=== PATIENT | female | born 1975 | race Caucasian/White ===

== ENCOUNTER 2016-08-30 12:21 | Emergency (ER) | payer OTHER ==
[~2016-08-30] VITALS: Ht 160 cm; Wt 50.0 kg
[~2016-08-30 12:21] MED LIST: METH750T2 PO; ULTR50TA PO
[2016-08-30 12:24] VITALS: BP 114/56; PULSE 77; RESP 15; TEMP 97.9; O2SAT 98
--- NOTE | 2016-08-30 13:51 | PD ---
HPI Chief Complaint: Dough Catcher Problem/Complaint Time Seen by Provider: 13:48 Travel History International Travel<30 days: No Contact w/Intl Traveler<30days: No Traveled to known affect area: No History of Present Illness HPI 41 Year-old female no significant medical history presents to emergency department for evaluation of lower abdominal pain since last night. Describes it as sharp and stabbing. States that movement makes it worse. No urinary symptoms. Patient states that she just simply she is she is currently having light brown vaginal discharge. She states a month ago she did take the "day after pill" and started a menstrual cycle that lasted 2 weeks. She states that she started with this brown spotting yesterday. No fever or chills. No urinary symptoms. No nausea, vomiting, diarrhea. No other symptoms to report. PFSH Past Medical History Anxiety: Yes Cancer: No Cardiovascular Problems: No Diabetes: No Diminished Hearing: No Endocrine: Yes (ADRENAL INSUFFICIENCY) Glaucoma: No Hepatitis: No Hiatal Hernia: No Hypertension: No Musculoskeletal: Yes ("HERNIATED DISC IN NECK" 2003) Respiratory: No Immunizations Current: No Thyroid Disease: No Ulcer: Yes ?: Not : 6 Para: 4 Miscarriage: 2 : 2 Past Surgical History Pacemaker: No Other Surgery: No Social History Alcohol Use: No Tobacco Use: No Substance Use: No Allergies-Medications (Allergen,Severity, Reaction): Coded Allergies: Nonsteroidal Anti-Inflammatory Agts (Verified Allergy, Unknown, 02/04/15) Reported Meds & Prescriptions Reported Meds & Active Scripts Active Robaxin (Methocarbamol) 750 Mg Tab 750 Mg PO TID PRN Ultram (Tramadol HCl) 50 Mg Tab 50 Mg PO TID PRN Review of Systems Except as stated in HPI: all other systems reviewed are Neg Physical Exam Narrative GENERAL: Well-nourished female patient, sitting on the bed, no acute distress SKIN: Warm and dry. HEAD: Atraumatic. Normocephalic. EYES: Pupils equal and round. No scleral icterus. No injection or drainage. ENT: No nasal bleeding or discharge. Mucous membranes pink and moist. NECK: Trachea midline. No JVD. CARDIOVASCULAR: Regular rate and rhythm. No murmur appreciated. RESPIRATORY: No accessory muscle use. Clear to auscultation. Breath sounds equal bilaterally. GASTROINTESTINAL: Abdomen soft, nondistended. Tenderness elicited palpation in the suprapubic and left lower quadrants. No rebound tenderness. No guarding.. Hepatic and splenic margins not palpable. MUSCULOSKELETAL: No obvious deformities. No clubbing. No cyanosis. No edema. NEUROLOGICAL: Awake and alert. No obvious cranial nerve deficits. Motor grossly within normal limits. Normal speech. PSYCHIATRIC: Appropriate mood and affect; insight and judgment normal. Data Data Last Documented VS Vital Signs Date Time Temp Pulse Resp B/P Pulse Ox O2 Delivery O2 Flow Rate FiO2 08/30/16 12:24 97.9 77 15 114/56 98 Orders Basic Metabolic Panel (Bmp) (08/30/16 13:31) Complete Blood Count With Diff (08/30/16 13:31) Prothrombin Time / Inr (Pt) (08/30/16 13:31) Act Partial Throm Time (Ptt) (08/30/16 13:31) Urinalysis - C+S If Indicated (08/30/16 13:31) Ed Urine Pregnancytest Poc (08/30/16 13:31) Gc And Chlamydia Pcr (08/30/16 13:31) Beta Hcg (Quant/Titer) (08/30/16 14:54) Us Pelvis (Ques Preg/Ectopic) (08/30/16 ) MDM Medical Decision Making Medical Screen Exam Complete: Yes Emergency Medical Condition: Yes Medical Record Reviewed: Yes Differential Diagnosis UTI versus STD versus PID versus in utero versus ectopic Narrative Course 41 year-old female presents to emergency department for evaluation. Patient appears without distress. She does have suprapubic and left lower quadrant tenderness to palpation. Workup was initiated in triage. Once a medical bed becomes available, patient will be transferred and care assumed by the provider. Condition: Stable Akilah Ochoa Aug 30, 2016 13:51
[2016-08-30 15:17] LABS: AUTOMATED NEUTROPHIL # 4.2 TH/MM3 (1.8-7.7); BACTERIA, URINE OCC /hpf; BASOPHIL # 0.1 TH/MM3 (0-0.2); BASOPHIL % 0.9 % (0.0-2.0); BLOOD, URINE TRACE (NEG); COMMENT (UR) CULT NOT INDICATED; CULTURE IF INDICATED CULT NOT INDICATED; EOSINOPHIL # 0.1 TH/MM3 (0-0.4); EOSINOPHIL % 0.9 % (0.0-4.0); GLUCOSE,URINE NEG (NEG); HEMATOCRIT 34.1 % (35.0-46.0); HEMO FLAGS DIFF FINAL; KETONE, URINE 10 mg/dL (NEG); LYMPH % 20.7 % (9.0-44.0); LYMPHOCYTE # 1.2 TH/MM3 (1.0-4.8); MEAN CELL VOLUME 94.1 FL (80.0-100.0); MEAN CORPUSCULAR HEMOGLOBIN 32.3 PG (27.0-34.0); MEAN CORPUSCULAR HGB CONC 34.3 % (32.0-36.0); MONO % 8.1 % (0.0-8.0); MUCUS URINE FEW /lpf (OCC); NEUT % 69.4 % (16.0-70.0); NITRITE,URINE NEG (NEG); PLATELET COUNT 308 TH/MM3 (150-450); RED BLOOD COUNT 3.62 MIL/MM3 (4.00-5.30); RED CELL DISTRIBUTION WIDTH 12.4 % (11.6-17.2); SQUAMOUS EPITHELIAL CELL URINE 4 /hpf (0-5); URINE COLOR YELLOW (YELLW/STRAW)
[2016-08-30 15:18] LABS: APTT (PATIENT) 26.6 SEC (24.3-30.1); PROTHROMBIN TIME - PATIENT 10.7 SEC (9.8-11.6)
[2016-08-30 15:22] LABS: BICARBONATE 27.5 MEQ/L (21.0-32.0); POTASSIUM 3.4 MEQ/L (3.5-5.1)
[2016-08-30 15:52] LABS: BETA HCG QUANT 363 MIU/ML (0-5)
[2016-08-30] MEDS ORDERED: MACR100C2 PO (15:59)
--- NOTE | 2016-08-30 15:59 | PD ---
Data Data Last Documented VS Vital Signs Date Time Temp Pulse Resp B/P Pulse Ox O2 Delivery O2 Flow Rate FiO2 08/30/16 15:10 16 08/30/16 12:24 97.9 77 114/56 98 Orders Basic Metabolic Panel (Bmp) (08/30/16 13:31) Complete Blood Count With Diff (08/30/16 13:31) Prothrombin Time / Inr (Pt) (08/30/16 13:31) Act Partial Throm Time (Ptt) (08/30/16 13:31) Urinalysis - C+S If Indicated (08/30/16 13:31) Ed Urine Pregnancytest Poc (08/30/16 13:31) Gc And Chlamydia Pcr (08/30/16 13:31) Beta Hcg (Quant/Titer) (08/30/16 14:54) Us Pelvis (Ques Preg/Ectopic) (08/30/16 ) Wet Prep Profile (08/30/16 16:23) Labs Laboratory Tests Test 08/30/16 08/30/16 14:40 16:00 White Blood Count 6.0 TH/MM3 Red Blood Count 3.62 MIL/MM3 Hemoglobin 11.7 GM/DL Hematocrit 34.1 % Mean Corpuscular Volume 94.1 FL Mean Corpuscular Hemoglobin 32.3 PG Mean Corpuscular Hemoglobin 34.3 % Concent Red Cell Distribution Width 12.4 % Platelet Count 308 TH/MM3 Mean Platelet Volume 8.0 FL Neutrophils (%) (Auto) 69.4 % Lymphocytes (%) (Auto) 20.7 % Monocytes (%) (Auto) 8.1 % Eosinophils (%) (Auto) 0.9 % Basophils (%) (Auto) 0.9 % Neutrophils # (Auto) 4.2 TH/MM3 Lymphocytes # (Auto) 1.2 TH/MM3 Monocytes # (Auto) 0.5 TH/MM3 Eosinophils # (Auto) 0.1 TH/MM3 Basophils # (Auto) 0.1 TH/MM3 CBC Comment DIFF FINAL Differential Comment Prothrombin Time 10.7 SEC Prothromb Time International 1.0 RATIO Ratio Activated Partial 26.6 SEC Thromboplast Time Urine Color YELLOW Urine Turbidity CLEAR Urine pH 6.0 Urine Specific [place] 1.025 Urine Protein TRACE mg/dL Urine Glucose (UA) NEG mg/dL Urine Ketones 10 mg/dL Urine Occult Blood TRACE Urine Nitrite NEG Urine Bilirubin NEG Urine Urobilinogen 2.0 MG/DL Urine Leukocyte Esterase NEG Urine RBC 4 /hpf Urine WBC 1 /hpf Urine Squamous Epithelial 4 /hpf Cells Urine Bacteria OCC /hpf Urine Mucus FEW /lpf Microscopic Urinalysis Comment CULT NOT INDICATED Sodium Level 139 MEQ/L Potassium Level 3.4 MEQ/L Chloride Level 105 MEQ/L Carbon Dioxide Level 27.5 MEQ/L Anion Gap 7 MEQ/L Blood Urea Nitrogen 17 MG/DL Creatinine 0.62 MG/DL Estimat Glomerular Filtration 107 ML/MIN Rate Random Glucose 92 MG/DL Calcium Level 8.7 MG/DL Human Chorionic Gonadotropin, 363 MIU/ML Quant Clue Cells (Wet Prep) NONE SEEN Vaginal Trichomonas (Wet Prep) NONE SEEN Vaginal Yeast (Wet Prep) NONE SEEN MDM Supervised Visit with JANUARY: Yes Narrative Course I, Dr. Armstrong, have reviewed the advance practice practioner's documentation and am in agreement, met with the patient face to face, made the diagnosis, and the medical decision making was done by me. *My assessment and Findings: 41-year-old female AB2 here with complaint of left lower quadrant abdominal pain since last night, sharp. Increasing abnormal vaginal discharge. She did take "the morning after pill" after LMP recently. She is concern for possible . Left lower quadrant abdominal tenderness to palpation, mild without rebound or guarding on exam. Pelvic examination reveals physiologic appearing discharge. No cervical erythema. Diffuse pelvic, left greater than right, tenderness to palpation on bimanual examination but no palpable masses. Differential includes , ectopic , PID, sexually transmitted infection, UTI, less likely ovarian torsion. Urine test was positive. Laboratory workup notable for beta Quant 363. Asymptomatic bacteria. Formal ultrasound remains pending at the time of dictation. Patient signed out to oncoming provider, Dr. Gaming, awaiting results of same. Diagnosis Primary Impression: Asymptomatic bacteriuria Additional Instruction: Finish antibiotics for bacterial within the urine. Med/Other Pt SpecificInfo: Prescription(s) given Scripts Nitrofurantoin Monohydrate Macrocrystals (Macrobid)100 Mg [id number] Mg PO BID 7 Days Ref 0 Prov:Fabienne Armstrong MD 08/30/16 Fabienne Armstrong MD Aug 30, 2016 15:59
[2016-08-30 17:00] VITALS: BP 124/66; PULSE 64; RESP 14; O2SAT 98
[2016-08-30 18:18] LABS: CHLAMYDIA PCR NOT DETECTED (NOT DETECT); NEISSERIA PCR NOT DETECTED (NOT DETECT)
[2016-08-30] MEDS ORDERED: ACETAMINOPHEN 325 MG TAB PO ONE (18:30)
[2016-08-30] MEDS ORDERED: MORPHINE SULFATE 4 MG/ML INJ IV PUSH ONE (18:45)
--- NOTE | 2016-08-30 19:23 | RADRPT ---
EXAM DATE/TIME: 08/30/2016 16:38 [facility] COMPARISON: No previous studies available for comparison. INDICATIONS : Pelvic pain and bleeding with . LAB(S): Beta-hC MEDICAL HISTORY : . x 2. Ulcer. Adrenal insufficiecy. Anxiety. Cervical herniated disc. SURGICAL HISTORY : None. ENCOUNTER: Initial ACUITY: 1 day PAIN SCORE: 6/10 LOCATION: Bilateral pelvis MEASUREMENTS: UTERUS: 7.5 x 4.9 x 4.0 cm ENDOMETRIAL STRIPE: 5 mm RIGHT OVARY: 3.3 x 2.5 x 1.9 cm LEFT OVARY: 3.8 x 3.3 x 2.9 cm FINDINGS: No sonographic evidence of an intrauterine . There is a complex cystic-appearing mass in the right ovary measuring up to 2.5 x 2.3 x 1.5 cm. This is probably a hemorrhagic cyst. There is also a complex cystic mass in the left ovary measuring up to 3.1 cm and a smaller complex cy st measuring up to 1.3 cm. Complex fluid is also present in the cul-de-sac. No discrete gestational s ac or pole is identified. No yolk sac is identified. CONCLUSION: 1. Complex cystic lesions in the ovaries bilaterally as noted above. These are probably complex hemor rhagic or corpus luteum cysts. No sonographic evidence for intrauterine . Close followup rec ommended if beta-hCG level continues to increase. Fabian Juares MD on August 30, 2016 at 19:16 Board Certified Radiologist. This report was verified electronically.
[2016-08-30 19:35] VITALS: BP 145/65; PULSE 91; RESP 16; O2SAT 100
--- NOTE | 2016-08-30 19:46 | PD ---
Physical Exam Date Seen by Provider: Aug 30, 2016 Data Data Last Documented VS Vital Signs Date Time Temp Pulse Resp B/P Pulse Ox O2 Delivery O2 Flow Rate FiO2 08/30/16 19:35 91 16 145/65 100 Room Air 08/30/16 12:24 97.9 Orders Basic Metabolic Panel (Bmp) (08/30/16 13:31) Complete Blood Count With Diff (08/30/16 13:31) Prothrombin Time / Inr (Pt) (08/30/16 13:31) Act Partial Throm Time (Ptt) (08/30/16 13:31) Urinalysis - C+S If Indicated (08/30/16 13:31) Ed Urine Pregnancytest Poc (08/30/16 13:31) Gc And Chlamydia Pcr (08/30/16 13:31) Beta Hcg (Quant/Titer) (08/30/16 14:54) Wet Prep Profile (08/30/16 16:23) Us Pelvis (Ques Pr/Ect)W Trans (08/30/16 ) Acetaminophen (Tylenol) (08/30/16 18:30) Morphine Inj (Morphine Inj) (08/30/16 18:45) Labs Laboratory Tests Test 08/30/16 08/30/16 14:40 16:00 White Blood Count 6.0 TH/MM3 Red Blood Count 3.62 MIL/MM3 Hemoglobin 11.7 GM/DL Hematocrit 34.1 % Mean Corpuscular Volume 94.1 FL Mean Corpuscular Hemoglobin 32.3 PG Mean Corpuscular Hemoglobin 34.3 % Concent Red Cell Distribution Width 12.4 % Platelet Count 308 TH/MM3 Mean Platelet Volume 8.0 FL Neutrophils (%) (Auto) 69.4 % Lymphocytes (%) (Auto) 20.7 % Monocytes (%) (Auto) 8.1 % Eosinophils (%) (Auto) 0.9 % Basophils (%) (Auto) 0.9 % Neutrophils # (Auto) 4.2 TH/MM3 Lymphocytes # (Auto) 1.2 TH/MM3 Monocytes # (Auto) 0.5 TH/MM3 Eosinophils # (Auto) 0.1 TH/MM3 Basophils # (Auto) 0.1 TH/MM3 CBC Comment DIFF FINAL Differential Comment Prothrombin Time 10.7 SEC Prothromb Time International 1.0 RATIO Ratio Activated Partial 26.6 SEC Thromboplast Time Urine Color YELLOW Urine Turbidity CLEAR Urine pH 6.0 Urine Specific [place] 1.025 Urine Protein TRACE mg/dL Urine Glucose (UA) NEG mg/dL Urine Ketones 10 mg/dL Urine Occult Blood TRACE Urine Nitrite NEG Urine Bilirubin NEG Urine Urobilinogen 2.0 MG/DL Urine Leukocyte Esterase NEG Urine RBC 4 /hpf Urine WBC 1 /hpf Urine Squamous Epithelial 4 /hpf Cells Urine Bacteria OCC /hpf Urine Mucus FEW /lpf Microscopic Urinalysis Comment CULT NOT INDICATED Sodium Level 139 MEQ/L Potassium Level 3.4 MEQ/L Chloride Level 105 MEQ/L Carbon Dioxide Level 27.5 MEQ/L Anion Gap 7 MEQ/L Blood Urea Nitrogen 17 MG/DL Creatinine 0.62 MG/DL Estimat Glomerular Filtration 107 ML/MIN Rate Random Glucose 92 MG/DL Calcium Level 8.7 MG/DL Human Chorionic Gonadotropin, 363 MIU/ML Quant Chlamydia trachomatis DNA NOT DETECTED (PCR) Neisseria gonorrhoeae DNA NOT DETECTED (PCR) Clue Cells (Wet Prep) NONE SEEN Vaginal Trichomonas (Wet Prep) NONE SEEN Vaginal Yeast (Wet Prep) NONE SEEN MDM Supervised Visit with JANUARY: Yes Interpretation(s) Vital Signs Date Time Temp Pulse Resp B/P Pulse Ox O2 Delivery O2 Flow Rate FiO2 08/30/16 17:00 64 14 124/66 98 Room Air 08/30/16 15:10 16 08/30/16 12:24 97.9 77 15 114/56 98 CBC & BMP Diagram 08/30/16 14:40 Differential Diagnosis Ectopic , threatened miscarriage, early , ovarian cyst, UTI, cervicitis Narrative Course Patient is a 41-year-old female who is [id number], who presents to the ER with c/o of llq pain. Patient did have a pelvic exam performed by Dr. Benitez, pending. Ultrasound pending. Patient did find out today that she was , hCG Quant is 363. Patient comfortable at this time. Awaiting pelvic ultrasound report. I Reviewed all labs and studies with patient detail. Discussed with patient possibility of ectopic versus bleeding with early versus threatened miscarriage. Patient understands need for repeat hCG Quant in 48 hours. Signs and symptoms of when to return to emergency room reviewed with patient in detail. Patient will follow-up with her [facility] [employer] and return to ER as needed. Diagnosis Primary Impression: Asymptomatic bacteriuria Additional Impressions: Qualified Code: Z33.1 - , unspecified gestational age , ectopic Threatened miscarriage in early Ovarian cyst Qualified Code: N83.201 - Cysts of both ovaries Patient Instructions: General Instructions, Narcotic given in the ED Additional Instruction: Please provide a copy of all labs and studies to patient discharge Finish antibiotics for bacterial within the urine. Please follow-up with all cultures from today Please follow-up with your [employer] as soon as possible Please return to emergency room if symptoms progress or worsen. Bed rest/pelvic rest Please have your hCG Quant repeated in 48 hours as your hCG quant was 363 today Med/Other Pt SpecificInfo: Prescription(s) given Scripts Nitrofurantoin Monohydrate Macrocrystals (Macrobid)100 Mg Sef100 Mg PO BID 7 Days Ref 0 Prov:Fabienne Armstrong MD 08/30/16 Disposition: 01 DISCHARGE HOME Condition: Yary Gaming DO Aug 30, 2016 19:46
== END 2016-08-30 20:22 | disposition home or self-care (01) ==
LOC: NEPA 12:21
DX: O20.0 Threatened abortion (principal); R82.71 Bacteriuria; R10.32 Left lower quadrant pain; N89.8 Other specified noninflammatory disorders of vagina; Z3A.00 Weeks of gestation of pregnancy not specified
CPT/HCPCS: 76700; 76817; 80048; 81001; 84702; 84703; 85025; 85610; 85730; 87210; 87491; 87591; 96374; 99284; J2270

== ENCOUNTER 2016-12-22 15:04 | Emergency (ER) | payer MEDICAID, OTHER ==
[~2016-12-22] VITALS: Ht 157.5 cm; Wt 45.1 kg
[~2016-12-22 15:04] MED LIST changes: +MACR100C2 PO; -METH750T2 PO; -ULTR50TA PO
[2016-12-22 15:08] VITALS: BP 112/62; PULSE 79; RESP 15; TEMP 98.2; O2SAT 99
--- NOTE | 2016-12-22 15:15 | PD ---
HPI Chief Complaint: Injury Time Seen by Provider: 15:15 Travel History International Travel<30 days: No Contact w/Intl Traveler<30days: No Traveled to known affect area: No History of Present Illness HPI 41-year-old female presents the emergency department with injury to the right hand. Patient reports that she didn't wall with her fist last night. Patient is now having pain in the hand at the base of the third fourth and fifth fingers. She denies pain in the wrist or elbow. Patient has numbness in the third fourth and fifth fingers as well as decreased range of motion secondary to pain. Pain is a 7/10. She states she is allergic to nonsteroidal anti-inflammatory agents. PFSH Past Medical History Anxiety: Yes Cancer: No Cardiovascular Problems: No Diabetes: No Diminished Hearing: No Endocrine: Yes (ADRENAL INSUFFICIENCY) Glaucoma: No Hepatitis: No Hiatal Hernia: No Hypertension: No Musculoskeletal: Yes ("HERNIATED DISC IN NECK" 2003) Respiratory: No Immunizations Current: No Thyroid Disease: No Ulcer: Yes ?: Not LMP: 2 WEEKS : 6 Para: 4 Miscarriage: 2 : 2 Past Surgical History Pacemaker: No Other Surgery: No Social History Alcohol Use: Yes (OCCASIONALLY) Tobacco Use: No ("A FEW DAILY") Substance Use: No Allergies-Medications (Allergen,Severity, Reaction): Coded Allergies: Nonsteroidal Anti-Inflammatory Agts (Verified Adverse Reaction, Intermediate, 12/22/16) HISTORY OF GASTRIC ULCER Reported Meds & Prescriptions Reported Meds & Active Scripts Active Acetaminophen Extra Strength (Acetaminophen) 500 Mg Cap 1,000 Mg PO Q6H PRN Review of Systems Except as stated in HPI: all other systems reviewed are Neg General / Constitutional: No: Fever Eyes: No: Visual changes HENT: No: Headaches Cardiovascular: No: Chest Pain or Discomfort Respiratory: No: Shortness of Breath Gastrointestinal: No: Abdominal Pain Genitourinary: No: Dysuria Musculoskeletal: Positive: Arthralgias (see history of present illness.), Limited ROM, Pain Skin: No Rash Neurologic: No: Weakness Psychiatric: No: Depression Endocrine: No: Polydipsia Hematologic/Lymphatic: No: Easy Bruising Physical Exam Narrative GENERAL: Patient appears in mild distress. SKIN: Warm and dry. Normal color. Normal turgor. Patient has obvious bruising over the knuckles of the third fourth and fifth digits. There is mild swelling. There is no wounds or abrasions. HEAD: Atraumatic. Normocephalic. EYES: Pupils equal and round. No scleral icterus. No injection or drainage. ENT: No nasal bleeding or discharge. Mucous membranes pink and moist. Pharynx is clear. NECK: Trachea midline. Supple and nontender. CARDIOVASCULAR: Regular rate and rhythm. RESPIRATORY: No accessory muscle use. Clear to auscultation. Breath sounds equal bilaterally. MUSCULOSKELETAL: Extremities without clubbing, cyanosis, or edema. No obvious deformities. Patient has pain in the right hand along the third fourth and fifth digits. Right Wrist has full range of motion. Normal pronation supination of the right hand. Range of motion is limited secondary to pain. NEUROLOGICAL: Awake and alert. No obvious cranial nerve deficits. Motor grossly within normal limits. Five out of 5 muscle strength in the arms and legs. Normal speech. PSYCHIATRIC: Appropriate mood and affect; insight and judgment normal. Data Data Last Documented VS Vital Signs Date Time Temp Pulse Resp B/P Pulse Ox O2 Delivery O2 Flow Rate FiO2 12/22/16 15:08 98.2 79 15 112/62 99 Orders Hand, Complete ([id number]) (12/22/16 15:19) Ice/Cold Pack (12/22/16 15:19) [facility] Medical Decision Making Medical Screen Exam Complete: Yes Emergency Medical Condition: Yes Differential Diagnosis Right hand contusion. Right hand fracture. Right hand pain. Narrative Course Ice pack is applied. X-ray of the right hand is obtained. X-ray shows no fracture dislocation. Jatinder wrap was placed for comfort. Continues extra strength Tylenol every 6 hours when necessary pain. Patient is to use ice frequently. Patient can follow with her primary care physician if symptoms warrant. Diagnosis Primary Impression: Contusion of right hand including fingers Qualified Code: S60.221A - Contusion of right hand including fingers, initial encounter Referrals: [employer] [employer] [facility] Patient Instructions: Contusion in Adults (ED), General Instructions Additional Instructions: X-ray shows no fracture or dislocation. Jatinder wrap was placed for comfort. Continues extra strength Tylenol every 6 hours when necessary pain. Patient is to use ice frequently. Patient can follow with her primary care physician if symptoms warrant. Med/Other Pt SpecificInfo: No Meds Exist/No RX given Scripts Acetaminophen (Acetaminophen Extra Strength)500 Mg Cap1,000 Mg PO Q6H PRN (PAIN SCALE 4 TO 10) #60 CAP Ref 1 Prov:Sebastian Garcia MD 12/22/16 Disposition: 01 DISCHARGE HOME Condition: Stable Ilia Nelson December 22, 2016 15:15
--- NOTE | 2016-12-22 15:57 | RADHPO ---
EXAM DATE/TIME: 12/22/2016 15:39 [facility] COMPARISON: HAND RIGHT COMPLETE ([id number]), January 01, 2014, 12:45. INDICATIONS : Right hand pain post punching injury yesterday MEDICAL HISTORY : None. SURGICAL HISTORY : None. ENCOUNTER: Initial ACUITY: 1 day PAIN SCORE: 10/10 LOCATION: Right 3rd, 4th, and 5th MCPJ FINDINGS: Three view examination of the right hand demonstrates no soft tissue swelling, dislocation, or fractu re. The carpal bones appear intact. The interphalangeal and metacarpophalangeal joints are intact. Bony mineralization is normal. CONCLUSION: No acute disease. Lizandro Friend MD on December 22, 2016 at 15:55 Board Certified Radiologist. This report was verified electronically.
[2016-12-22] MEDS ORDERED: EXTR500C PO ×2 (16:13→16:37)
== END 2016-12-22 16:42 | disposition home or self-care (01) ==
LOC: PHEFT 15:04
DX: S60.221A Contusion of right hand, initial encounter (principal); E27.40 Unspecified adrenocortical insufficiency; F41.9 Anxiety disorder, unspecified; W22.01XA Walked into wall, initial encounter
CPT/HCPCS: 73130; 99283

== ENCOUNTER 2017-03-12 04:23 | Observation (INO) | payer MEDICAID ==
[~2017-03-12] VITALS: Ht 160 cm; Wt 50.0 kg
[~2017-03-12 04:23] MED LIST changes: +EXTR500C PO; -MACR100C2 PO
[2017-03-12 04:26] VITALS: BP 142/64; PULSE 98; RESP 20; O2SAT 98
[2017-03-12] MEDS ORDERED: MORPHINE SULFATE 8 MG/ML INJ IV PUSH ONE (04:30)
[2017-03-12] MEDS ORDERED: SODIUM CHLORIDE 0.9% FLUSH 10 ML FLUSH IVF PRN (04:30)
[2017-03-12 04:33] VITALS: O2SAT 100
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
[2017-03-12] MEDS ORDERED: MIDAZOLAM HCL 5 MG/ML VIAL (1 ML) ONE (04:44)
[2017-03-12] MEDS ORDERED: MIDAZOLAM HCL 2 MG/2 ML VIAL IV PUSH ONE (04:45)
[2017-03-12 04:48] LABS: BASOPHIL # 0.1 TH/MM3 (0-0.2); BASOPHIL % 1.1 % (0.0-2.0); EOSINOPHIL % 0.2 % (0.0-4.0); HEMATOCRIT 38.8 % (35.0-46.0); HEMO FLAGS DIFF FINAL; LYMPH % 27.4 % (9.0-44.0); LYMPHOCYTE # 2.5 TH/MM3 (1.0-4.8); MEAN CELL VOLUME 95.7 FL (80.0-100.0); MEAN CORPUSCULAR HEMOGLOBIN 33.2 PG (27.0-34.0); MEAN CORPUSCULAR HGB CONC 34.7 % (32.0-36.0); MONO % 6.4 % (0.0-8.0); NEUT % 64.9 % (16.0-70.0); PLATELET COUNT 403 TH/MM3 (150-450); RED BLOOD COUNT 4.06 MIL/MM3 (4.00-5.30); WHITE BLOOD COUNT 9.2 TH/MM3 (4.0-11.0)
[2017-03-12] MEDS ORDERED: PROPOFOL 500 MG/50 ML BTL IV ONE (05:00)
--- NOTE | 2017-03-12 05:06 | RADRPT ---
EXAM DATE/TIME: 03/12/2017 04:34 [facility] COMPARISON: No previous studies available for comparison. INDICATIONS : Fracture MEDICAL HISTORY : None. SURGICAL HISTORY : None. ENCOUNTER: Initial ACUITY: 1 day PAIN SCORE: 10/10 LOCATION: Right upper extremity wrist FINDINGS: Two view examination of the right wrist demonstrates fracture dislocation of the distal radius and ul na. Posterior displacement of distal components/carpus. The joint spaces are maintained. Bony mine ralization is normal. CONCLUSION: Fracture dislocation distal radius and ulna. Bjorn Garrison MD on March 12, 2017 at 5:04 Board Certified Radiologist. This report was verified electronically.
[2017-03-12 05:21] LABS: ALT (GPT) 30 U/L (10-53); ANION GAP 13 MEQ/L (5-15); AST (GOT) 16 U/L (15-37); BICARBONATE 22.5 MEQ/L (21.0-32.0); BLOOD UREA NITROGEN 12 MG/DL (7-18); CHLORIDE 106 MEQ/L (98-107); GLOMERULAR FILTRATION RATE 81 ML/MIN (>89); SODIUM (NA) 141 MEQ/L (136-145)
[2017-03-12 05:24] LABS: ALKALINE PHOSPHATASE 69 U/L (45-117); TOTAL BILIRUBIN ADULT 0.2 MG/DL (0.2-1.0)
[2017-03-12 05:55] VITALS: O2SAT 100
--- NOTE | 2017-03-12 06:09 | RADRPT ---
EXAM DATE/TIME: 03/12/2017 04:58 [facility] COMPARISON: No previous studies available for comparison. INDICATIONS : Right wrist fracture post fall with pain radiating entire right arm to the shoulder. MEDICAL HISTORY : None. SURGICAL HISTORY : None. ENCOUNTER: Subsequent ACUITY: 1 day PAIN SCORE: 10/10 LOCATION: Right upper extremity FINDINGS: Two view examination of the right humerus demonstrates no evidence of fracture or dislocation. Bony mineralization is normal. The soft tissue structures are intact. CONCLUSION: No acute fracture. Bjorn Garrison MD on March 12, 2017 at 6:07 Board Certified Radiologist. This report was verified electronically.
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
[2017-03-12] MEDS ORDERED: oxyCODONE/ACETAMINOPHEN 5 MG/325 MG TAB PO ONE (06:45)
--- NOTE | 2017-03-12 06:45 | RADRPT ---
EXAM DATE/TIME: 03/12/2017 06:01 [facility] COMPARISON: WRIST RIGHT LIMITED(AP & LAT), March 12, 2017, 4:34. INDICATIONS : Post reduction MEDICAL HISTORY : None. SURGICAL HISTORY : None. ENCOUNTER: Subsequent ACUITY: 1 day PAIN SCORE: 10/10 LOCATION: Right Wrist FINDINGS: Three view examination of the right wrist demonstrates improved alignment of distal radius and ulnar fractures. Right arm is within a cast. Bony mineralization is normal. CONCLUSION: 1. Improved alignment of distal radius and ulnar fractures. Bjorn Garrison MD on March 12, 2017 at 6:42 Board Certified Radiologist. This report was verified electronically.
[2017-03-12] MEDS ORDERED: ONDANSETRON HCL 4 MG/2 ML VIAL IVP PRN (07:00)
[2017-03-12] MEDS ORDERED: HYDROmorphone HCL PF 1 MG/ML VIAL IV PRN (07:00)
[2017-03-12] MEDS ORDERED: LORazepam 2 MG/ML VIAL IV PUSH ONE (07:00)
[2017-03-12] MEDS ORDERED: SODIUM CHLORIDE 0.9% FLUSH 10 ML FLUSH IV FLUSH PRN ×2 (07:00→12:30)
[2017-03-12] MEDS ORDERED: ACETAMINOPHEN 325 MG TAB PO PRN (07:00)
[2017-03-12] MEDS ORDERED: MAGNESIUM HYDROXIDE SUSP 30 ML CUP PO PRN ×2 (07:00→12:30)
[2017-03-12] MEDS ORDERED: LORazepam 2 MG/ML VIAL IV PUSH PRN (07:00)
[2017-03-12] MEDS ORDERED: SENNOSIDES 8.6 MG TAB PO PRN (07:00)
[2017-03-12] MEDS ORDERED: LACTULOSE SYRUP 20 GM/30 ML CUP PO PRN (07:00)
[2017-03-12] MEDS ORDERED: BISACODYL 10 MG SUPP RECTAL PRN (07:00)
[2017-03-12] MEDS: SODIUM CHLOR 0.9% 1000 ML INJ 1,000 ML IV SCH ×2 (07:18→09:24)
[2017-03-12] MEDS ORDERED: SODIUM CHLORIDE 0.9% FLUSH 10 ML FLUSH IV FLUSH SCH ×2 (09:00→21:00)
[2017-03-12] MEDS ORDERED: DOCUSATE SODIUM 50 MG/SENNA 8.6 MG TAB PO SCH (09:00)
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
[2017-03-12] MEDS ORDERED: INSULIN HUMAN REGULAR 1,000 UNITS/10 ML VIAL SQ PRN (10:15)
[2017-03-12] MEDS ORDERED: LACTATED RINGER'S 1000 ML IV PRN (10:15)
[2017-03-12] MEDS ORDERED: CHLORHEXIDINE GLUCONATE 2 % 1 PACK (2 CLOTHS) TOPICAL PRN (10:15)
[2017-03-12] MEDS ORDERED: SODIUM CHLORID 0.9% 500 ML IV PRN (10:15)
[2017-03-12] MEDS ORDERED: METOPROLOL TARTRATE 25 MG TAB PO PRN (10:15)
[2017-03-12] MEDS ORDERED: POVIDONE IODINE 5% (ANTISEPSIS KIT) 4 APPLICATIONS EACH NARE PRN (10:15)
[2017-03-12 11:00] VITALS: BP 116/63; PULSE 73; RESP 19; TEMP 96.7; O2SAT 95
[2017-03-12] MEDS ORDERED: FAMOTIDINE 20 MG/2 ML VIAL ONE ×2 (11:14→11:28)
[2017-03-12] MEDS ORDERED: HYDROCORTISONE SOD SUCCINATE 100 MG VIAL ONE (11:27)
[2017-03-12] MEDS ORDERED: ACETAMINOPHEN 1000 MG/100 ML VIAL IV ONE (11:28)
[2017-03-12] MEDS ORDERED: ceFAZolin INJ 1,000 MG VIAL ONE (11:33)
[2017-03-12] MEDS ORDERED: GENTAMICIN SULFATE 80 MG/2 ML VIAL ONE (11:33)
[2017-03-12] MEDS ORDERED: VANCOMYCIN HCL 1000 MG VIAL ONE (11:34)
[2017-03-12] MEDS ORDERED: NALOXONE HCL 0.4 MG/ML AMP IV PUSH PRN (11:45)
--- NOTE | 2017-03-12 12:28 | PD.OP ---
cc: Akshat Figueredo MD Operative Report Date of Surgery: Mar 12, 2017 Preoperative Diagnosis: Right distal radius fracture, intra-articular three-part comminuted. Right hand acute carpal tunnel syndrome. Postoperative Diagnosis: Same Procedure: Right distal radius fracture open reduction and internal fixation of three-part intra-articular fracture. Right hand open carpal tunnel release. Anesthesia: Gen. Surgeon: Akshat Figueredo Account Financial Manager(s): TOMMY Calvin The surgical procedure was assisted by my Advanced Registered Nurse Practitioner. My PRODUCT ACCOUNTANT presence was necessary throughout this case for the manipulation and positioning of the surgical extremity. My PRODUCT ACCOUNTANT was assisting me throughout the duration of this procedure. The skill set of an Advance Registered Nurse Practitioner was medically necessary to complete this procedure. During the surgical case, the food technician was working at the back table and the Advance Registered Nurse Practitioner was directly assisting me. Operation and Findings: Tourniquet time: 24 minutes at 250 mmHg of pressure Estimated blood loss: 5 cc The patient received intravenous vancomycin and Ancef. After the appropriate anesthesia was administered, the patient's arm was prepped and draped in the usual sterile fashion. There were minor abrasions on the volar aspect of the wrist which were partial thickness in nature with no signs of infection. The foot scrubbed and cleaned prior to the normal prepping and draping. The arm was exsanguinated. The tourniquet was raised to 250 mmHg of pressure. We made a standard incision over the volar aspect of the forearm. We then dissected through the flexor carpi radialis sub-sheath. The pronator quadratus was reflected. We now visualized the distal radius fracture very well. The fracture was anatomically reduced both visually and via fluoroscopy. We provisionally held the fracture reduced and then applied a Synthes precontoured distal radius plate into the appropriate position. The plate was secured to the distal radius first with the sliding screw hole. This was then followed by locking screws distally and proximally. We took final fluoroscopic imaging of the wrist. We found no intra-articular penetration of the screws. The patient had full range of motion of the wrist with no crepitus. We then made a separate incision over the volar aspect of the hand at the base. We dissected through deep tissue down to the deep transverse carpal ligament. We incised this ligament starting in the center and then extending distally and then proximally making sure the entire carpal tunnel was released. We found minor hemorrhage and contusion around the nerve. The median nerve was intact. The tourniquet was released and hemostasis was achieved. The patient had a 2+ radial pulse. We irrigated the incisions thoroughly. We then closed skin with 2-0 Vicryl followed by 3-0 nylon. The arm was dressed and a volar splint was applied. The postoperative plan is to start delayed range of motion of the wrist, due to significant comminution. Akshat Figueredo MD Mar 12, 2017 12:28
[2017-03-12] MEDS ORDERED: NALOXONE HCL 0.4 MG/ML AMP IV PRN (12:30)
[2017-03-12] MEDS ORDERED: PERC5TAB12 PO (12:30)
[2017-03-12] MEDS ORDERED: MORPHINE SULFATE 4 MG/ML INJ IV PUSH PRN (12:30)
[2017-03-12] MEDS ORDERED: oxyCODONE/ACETAMINOPHEN 5 MG/325 MG TAB PO PRN (12:30)
[2017-03-12] MEDS ORDERED: diphenhydrAMINE HCL 25 MG CAP PO PRN (12:30)
--- NOTE | 2017-03-12 12:31 | RADRPT ---
EXAM DATE/TIME: 03/12/2017 12:10 [facility] COMPARISON: WRIST RIGHT LIMITED(AP & LAT), March 12, 2017, 4:34. INDICATIONS : ORIF right wrist. MEDICAL HISTORY : None. SURGICAL HISTORY : None. ENCOUNTER: Subsequent ACUITY: 1 day PAIN SCORE: Non-responsive. LOCATION: Right Wrist FINDINGS: Two view examination of the right wrist demonstrates postsurgical changes following open reduction an d internal fixation of a severely comminuted distal right radial fracture. The fracture fragments are satisfactory aligned following placement of a fixation plate. Radiocarpal joint is satisfactory alig dylan. CONCLUSION: Satisfactory postoperative appearance of the right wrist following ORIF of a severely comminuted dist al radial fracture. . Tyrese Mendoza MD on March 12, 2017 at 12:28 Board Certified Radiologist. This report was verified electronically.
[2017-03-12] MEDS ORDERED: fentaNYL CITRATE 250 MCG/5 ML AMP ONE (12:32)
[2017-03-12] MEDS ORDERED: Post-op Orders (for Pharmacy) MISC XX ONE (12:49)
[2017-03-12] MEDS: DEXT 5%-NACL 0.45% 1000 ML INJ 1,000 ML IV SCH ×2 (13:00→14:03)
[2017-03-12] MEDS ORDERED: *morphine SULFATE 8 MG/ML PERIprocedure ONLY ONE (13:08)
[2017-03-12] MEDS ORDERED: ONDANSETRON HCL 4 MG/2 ML VIAL IV PUSH ONE (13:09)
[2017-03-12] MEDS ORDERED: LACTATED RINGER'S 1000 ML INJ 1,000 ML IV ONE (13:09)
[2017-03-12] MEDS ORDERED: PROPOFOL 200 MG/20 ML AMP IV ONE (13:09)
[2017-03-12] MEDS ORDERED: DO NOT ADM ANY ANTICOAGULANT DRUGS PRN (13:15)
[2017-03-12 13:40] VITALS: BP 116/60; PULSE 100; RESP 16; TEMP 97.5; O2SAT 94
[2017-03-12] MEDS: oxyCODONE/ACETAMINOPHEN 5 MG/325 MG TAB PO PRN ×2 (14:20→19:02)
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
--- NOTE | 2017-03-12 14:59 | HHI.HP ---
[facility] Primary Care Physician No Primary Care Physician Admission Diagnosis Radius fracture. Diagnoses: Chief Complaint: Right wrist pain Travel History International Travel<30 Days: No Contact w/Intl Traveler <30 Da: No Traveled to Known Affected Are: No History of Present Illness This is a 41-year-old female with history of anxiety, chronic neck pain from herniation and adrenal insufficiency. She presented to the emergency room complaining of right wrist pain. She was celebrating the 35th birthday of her boyfriend and was drinking. She was in the car and was unable to get out through the door and climbed out of the window and fell landing on her outstretched right hand. She immediately complained of right wrist pain and numbness. Sustained a distal radius fracture and underwent open reduction and internal fixation of three-part intra-articular fracture and right hand open carpal tunnel release. At this time, she complains of minimal pain with improved numbness. She has been discharged by orthopedic surgery if pain controlled with oral medications. Denies any other injuries. All other systems reviewed negative This is a 41-year-old female with history of anxiety, chronic neck pain from herniation and adrenal insufficiency. She presented to the emergency room complaining of right wrist pain. She was celebrating the 35th birthday of her boyfriend and was drinking. She was in the car and was unable to get out through the door and climbed out of the window and fell landing on her outstretched right hand. She immediately complained of right wrist pain and numbness. Sustained a distal radius fracture and underwent open reduction and internal fixation of three-part intra-articular fracture and right hand open carpal tunnel release. At this time, she complains of minimal pain with improved numbness. She has been discharged by orthopedic surgery if pain controlled with oral medications. Denies any other injuries. All other systems reviewed negative Review of Systems Except as stated in HPI: all other systems reviewed are Neg Past Family Social History Past Medical History As previously mentioned Past Surgical History Right wrist cyst removal Reported Medications None Allergies: Coded Allergies: Nonsteroidal Anti-Inflammatory Agts (Verified Adverse Reaction, Intermediate, 12/22/16) HISTORY OF GASTRIC ULCER Family History CAD Social History Occasional alcohol, tobacco and marijuana use Physical Exam Vital Signs Vital Signs Date Time Temp Pulse Resp B/P Pulse Ox O2 Delivery O2 Flow Rate FiO2 03/12/17 13:40 97.5 100 16 116/60 94 Room Air 03/12/17 13:30 101 15 113/62 94 Room Air 03/12/17 13:15 103 15 115/67 93 Room Air 03/12/17 13:13 15 03/12/17 13:00 109 15 120/61 92 Room Air 03/12/17 12:50 97.5 118 15 118/60 96 Room Air 03/12/17 11:00 96.7 73 19 116/63 95 03/12/17 07:30 92 Nasal Cannula 3 03/12/17 05:55 100 3.00 03/12/17 04:33 100 Room Air 03/12/17 04:33 100 Room Air 03/12/17 04:33 100 Room Air 03/12/17 04:26 98 20 142/64 98 Room Air Physical Exam GENERAL: This is a well-nourished, well-developed patient, in no apparent distress. SKIN: No rashes, ecchymoses or lesions. Cool and dry. HEAD: Atraumatic. Normocephalic. No temporal or scalp tenderness. EYES: Pupils equal round and reactive. Extraocular motions intact. No scleral icterus. No injection or drainage. ENT: Nose without bleeding, purulent drainage or septal hematoma. Throat without erythema, tonsillar hypertrophy or exudate. Uvula midline. Airway patent. NECK: Trachea midline. No JVD or lymphadenopathy. Supple, nontender, no meningeal signs. CARDIOVASCULAR: Regular rate and rhythm without murmurs, gallops, or rubs. RESPIRATORY: Clear to auscultation. Breath sounds equal bilaterally. No wheezes , rales, or rhonchi. GASTROINTESTINAL: Abdomen soft, non-tender, nondistended. No guarding. MUSCULOSKELETAL: Extremities without clubbing, cyanosis, or edema. No joint tenderness, effusion, or edema noted. No calf tenderness. Negative Homans sign bilaterally. Right upper extremity in a sling NEUROLOGICAL: Awake and alert. Cranial nerves II through XII intact. Able to move fingers. Normal speech. Laboratory Laboratory Tests Test 03/12/17 03/12/17 04:36 06:50 White Blood Count 9.2 Red Blood Count 4.06 Hemoglobin 13.4 Hematocrit 38.8 Mean Corpuscular Volume 95.7 Mean Corpuscular Hemoglobin 33.2 Mean Corpuscular Hemoglobin 34.7 Concent Red Cell Distribution Width 12.0 Platelet Count 403 Mean Platelet Volume 7.8 Neutrophils (%) (Auto) 64.9 Lymphocytes (%) (Auto) 27.4 Monocytes (%) (Auto) 6.4 Eosinophils (%) (Auto) 0.2 Basophils (%) (Auto) 1.1 Neutrophils # (Auto) 6.0 Lymphocytes # (Auto) 2.5 Monocytes # (Auto) 0.6 Eosinophils # (Auto) 0.0 Basophils # (Auto) 0.1 CBC Comment DIFF FINAL Differential Comment Sodium Level 141 Potassium Level 4.0 Chloride Level 106 Carbon Dioxide Level 22.5 Anion Gap 13 Blood Urea Nitrogen 12 Creatinine 0.79 Estimat Glomerular Filtration 81 Rate Random Glucose 102 Calcium Level 8.9 Total Bilirubin 0.2 Aspartate Amino Transf 16 (AST/SGOT) Alanine Aminotransferase 30 (ALT/SGPT) Alkaline Phosphatase 69 Total Protein 8.7 Albumin 4.6 Ethyl Alcohol Level 214 Urine Opiates Screen POS Urine Barbiturates Screen NEG Urine Amphetamines Screen NEG Urine Benzodiazepines Screen POS Urine Cocaine Screen NEG Urine Cannabinoids Screen POS Result Diagram: 03/12/176 03/12/17435 Assessment and Plan Problem List: (1) Wrist fracture ICD Code: S62.109A Status: Acute Assessment and Plan This is a 41-year-old female who presented to the emergency room complaining of right wrist pain. She was celebrating the 35th birthday of her boyfriend and was drinking. She was in the car and was unable to get out through the door and climbed out of the window and fell landing on her outstretched right hand. She immediately complained of right wrist pain and numbness. Sustained a distal radius fracture and underwent open reduction and internal fixation of three-part intra-articular fracture and right hand open carpal tunnel release. At this time, she complains of minimal pain with improved numbness. She has been discharged by orthopedic surgery after completion of IV antibiotic and if pain controlled with oral medications. Denies any other injuries. Patient counseled regarding narcotics. Wound care Chronic medical conditions of anxiety, chronic neck pain from herniation and adrenal insufficiency. Stable DVT prophylaxis with SCD and early ambulation Discussed Condition With Patient Discharge patient to home Condition on discharge: Improved Regular Diet as tolerated Ad Mariluz activity weightbearing as tolerated right upper extremity, elevate right upper extremity above heart Rx written: Lortab Follow-up with primary care physician and orthopedic surgery Problem Qualifiers (1) Wrist fracture: Qualified Code: S62.101A - Closed fracture of right wrist, initial encounter Rosendo Arreaga MD Mar 12, 2017 14:59
[2017-03-13] MEDS ORDERED: MULTIVITAMINS/MINERALS THERAPEUTIC TAB PO SCH (09:00)
== END 2017-03-12 19:46 | disposition home or self-care (01) ==
LOC: NEPE 04:23 → INTOOBSV 06:58 → NEDA 06:58 → N06B 08:56
PROVIDERS: ADMIT Internal Medicine; ATTEND Internal Medicine
DX: S52.541A Smith's fracture of right radius, initial encounter for closed fracture (principal); S52.613A Displaced fracture of unspecified ulna styloid process, initial encounter for closed fracture; G56.01 Carpal tunnel syndrome, right upper limb; F41.9 Anxiety disorder, unspecified; M54.2 Cervicalgia; G89.29 Other chronic pain; E27.40 Unspecified adrenocortical insufficiency; F12.90 Cannabis use, unspecified, uncomplicated; F17.210 Nicotine dependence, cigarettes, uncomplicated; W19.XXXA Unspecified fall, initial encounter
CPT/HCPCS: 01810; 01830; 25609; 64721; 73060; 73100; 73110; 76000; 80053; 80307; 84703; 85025; 96365; 96375; 99285; C1713; G0378; J0131; J0690; J1170; J1580; J1720; J2060; J2250; J2270; J2405; J3010; J3370; J7030; J7120

== ENCOUNTER → 2017-08-31 | Outpatient (CLI) | payer MEDICAID ==
[~2017-08-31] MED LIST changes: -EXTR500C PO; +PERC5TAB12 PO
== END ==
LOC: HPND 10:30
PROVIDERS: ATTEND Obstetrics & Gynecology
DX: O09.522 Supervision of elderly multigravida, second trimester (principal)
CPT/HCPCS: 76811

== ENCOUNTER → 2017-10-13 | Outpatient (CLI) | payer MEDICAID | LOC: HPND 10:44 | PROVIDERS: ATTEND Obstetrics & Gynecology | DX: O09.522 Supervision of elderly multigravida, second trimester (principal) | CPT/HCPCS: 76816 ==